=== PATIENT | male | born 1995 | race Caucasian/White ===

== ENCOUNTER 2017-03-02 12:07 | Emergency (ER) | payer BC, OTHER ==
--- NOTE | 2017-03-02 13:36 | UC ---
Skin Complaint HPI - HPI Summary HPI Summary: Pt is here with c/o insect bite, possible tick bite to scrotum. Pt states that as he was changing he noticed tick/insect crawling on inner thigh and as he went to remove the insect, the insect bit patient in the scrotum. pt reports he pulled the tick off at home immediately as it bit him. Pt believes head of tick remains attached to skin. - History of Current Complaint Time Seen by Provider: 03/02/17 13:22 Stated Complaint: SKIN COMPLAINT/TICK Hx Obtained From: Patient Onset/Duration: Sudden Onset, Lasting Days Skin Exposure Onset/Duration: Days Ago Timing: Constant Onset Severity: Mild Current Severity: Mild Location: Discrete - posterior scrotum Aggravating: Nothing Alleviating: Nothing Related History: Insect Bite/Sting - Allergy/Home Medications Allergies/Adverse Reactions: Allergies Allergy/AdvReac Type Severity Reaction Status Date / Time No Known Allergies Allergy Verified 03/02/17 13:26 Home Medications: Home Medications Fexofenadine (NF) [Lianna (NF)] 60 mg PO DAILY 03/02/17 [History Confirmed ] Review of Systems Constitutional: Negative Skin: Other - insect/tick bite, head still attached to skin Eyes: Negative ENT: Negative Respiratory: Negative Cardiovascular: Negative Gastrointestinal: Negative Genitourinary: Negative Motor: Negative Neurovascular: Negative Musculoskeletal: Negative Neurological: Negative Psychological: Negative All Other Systems Reviewed And Are Negative: Yes PMH/Surg Hx/FS Hx/Imm Hx Previously Healthy: Yes - Surgical History Surgical History: None - Family History Known Family History: Positive: Other - Social History Alcohol Use: Occasionally Substance Use Type: None Smoking Status (MU): Never Smoked Tobacco Type: Smokeless Tobacco Amount Used/How Often: 1 can weekly Physical Exam Triage Information Reviewed: Yes Appearance: Well-Appearing Vital Signs: Initial Vital Signs Temp 99.0 F 03/02/17 13:27 Pulse 72 03/02/17 13:27 Resp 16 03/02/17 13:27 BP 139/77 03/02/17 13:27 Pulse Ox 99 03/02/17 13:27 Eye Exam: Normal Respiratory Exam: Normal Musculoskeletal Exam: Normal Neurological Exam: Normal Psychological Exam: Normal Skin Exam: Other - pt declined physical exam Course/Dx - Differential Diagnoses - Skin Complaint Differential Diagnoses: Tick Born Illness - Diagnoses Provider Diagnoses: insect bite. possible lyme exposure Discharge - Discharge Plan Condition: Stable Disposition: HOME Prescriptions: DOXYcycline CAP(*) [DOXYcycline 100MG CAP(*)] 200 mg PO ONCE #2 cap Patient Education Materials: Insect Bite or Sting (ED) Referrals: [facility] [Outside]
== END 2017-03-02 13:57 | disposition home or self-care (01) ==
LOC: UCCORT 12:07
DX: S30.863A Insect bite (nonvenomous) of scrotum and testes, initial encounter (principal); W57.XXXA Bitten or stung by nonvenomous insect and other nonvenomous arthropods, initial encounter
CPT/HCPCS: 99202; G0463